=== PATIENT | female | born 1975 | race Caucasian/White ===

== ENCOUNTER 2016-10-17 19:59 | Emergency (ER) | payer BC, OTHER ==
[~2016-10-17] VITALS: Ht 167.6 cm; Wt 100.0 kg
[2016-10-17 20:20] VITALS: BP 131/83; PULSE 92; RESP 18; TEMP 97.7; O2SAT 99
--- NOTE | 2016-10-17 20:25 | PD ---
HPI Chief Complaint: Gamez act Time Seen by Provider: 20:13 Travel History International Travel<30 days: No Contact w/Intl Traveler<30days: No Traveled to known affect area: No History of Present Illness HPI The patient is a 41-year-old female who presents emergency Department as a Gamez act. According to the police affidavit the patient has a history of depression and was advised by the patient's father that the patient is a recovering alcoholic. The patient states she stopped taking her generic Effexor and Wellbutrin on Sunday. She has been drinking over the last several days and took 4 Tylenol PM pills 2 days ago in an attempt to kill herself. The patient does have a previous history of overdose with Tylenol multiple years ago. She does have a history of depression and states "is not worth living anymore ". She does note suicidal ideation without specific plan, however, did recently take 4 Tylenol PM pills. She denies any illicit drug use. She denies any hallucinations or delusions. She denies any physical complaints and is actively asking for water to drink. [facility] Past Medical History Narrative Medical Depression Past Surgical History Narrative Surgical Not contributory Social History Alcohol Use: Yes Tobacco Use: No Allergies-Medications (Allergen,Severity, Reaction): Coded Allergies: No Known Allergies (Unverified , 10/17/16) Review of Systems Except as stated in HPI: all other systems reviewed are Neg General / Constitutional: No: Fever HENT: No: Lightheadedness Cardiovascular: No: Chest Pain or Discomfort Respiratory: No: Shortness of Breath Gastrointestinal: No: Nausea, Vomiting, Abdominal Pain Neurologic: No: Weakness, Dizziness Psychiatric: Positive: Depression, Suicidal Ideations, Substance Abuse ( alcohol use), No: Homicidal Ideation Physical Exam Narrative GENERAL: Awake, alert, 41-year-old female appears her stated age and is in no acute respiratory distress. SKIN: No obvious rash. HEAD: Atraumatic. Normocephalic. EYES: No injection or drainage. ENT: No nasal bleeding or discharge. Mucous membranes pink and moist. NECK: Trachea midline. No JVD. CARDIOVASCULAR: Regular rate and rhythm. No murmur appreciated. RESPIRATORY: No accessory muscle use. Clear to auscultation. Breath sounds equal bilaterally. MUSCULOSKELETAL: No obvious deformities. No clubbing. No cyanosis. No edema. NEUROLOGICAL: Awake and alert. No obvious cranial nerve deficits. Motor grossly within normal limits. Normal speech. Nonfocal. PSYCHIATRIC: Flat affect. Data Data Last Documented VS Vital Signs Date Time Temp Pulse Resp B/P Pulse Ox O2 Delivery O2 Flow Rate FiO2 10/17/16 20:20 97.7 92 18 131/83 99 Orders Complete Blood Count With Diff (10/17/16 20:18) Comprehensive Metabolic Panel (10/17/16 20:18) Urinalysis - C+S If Indicated (10/17/16 20:18) Psych Screen (10/17/16 20:18) Drug Screen, Random Urine (10/17/16 20:18) Alcohol (Ethanol) (10/17/16 20:18) Salicylates (Aspirin) (10/17/16 20:18) Tylenol (Acetaminophen) (10/17/16 20:18) Labs Laboratory Tests Test 10/17/16 20:38 White Blood Count 7.8 TH/MM3 Red Blood Count 4.76 MIL/MM3 Hemoglobin 14.7 GM/DL Hematocrit 44.2 % Mean Corpuscular Volume 93.0 FL Mean Corpuscular Hemoglobin 31.0 PG Mean Corpuscular Hemoglobin 33.3 % Concent Red Cell Distribution Width 13.4 % Platelet Count 314 TH/MM3 Mean Platelet Volume 8.7 FL Neutrophils (%) (Auto) 36.2 % Lymphocytes (%) (Auto) 49.5 % Monocytes (%) (Auto) 9.6 % Eosinophils (%) (Auto) 3.5 % Basophils (%) (Auto) 1.2 % Neutrophils # (Auto) 2.8 TH/MM3 Lymphocytes # (Auto) 3.8 TH/MM3 Monocytes # (Auto) 0.7 TH/MM3 Eosinophils # (Auto) 0.3 TH/MM3 Basophils # (Auto) 0.1 TH/MM3 CBC Comment DIFF FINAL Differential Comment Sodium Level 142 MEQ/L Potassium Level 3.7 MEQ/L Chloride Level 104 MEQ/L Carbon Dioxide Level 24.5 MEQ/L Anion Gap 14 MEQ/L Blood Urea Nitrogen 9 MG/DL Creatinine 0.98 MG/DL Estimat Glomerular Filtration 63 ML/MIN Rate Random Glucose 107 MG/DL Calcium Level 8.6 MG/DL Total Bilirubin 0.3 MG/DL Aspartate Amino Transf 38 U/L (AST/SGOT) Alanine Aminotransferase 43 U/L (ALT/SGPT) Alkaline Phosphatase 71 U/L Total Protein 7.4 GM/DL Albumin 3.7 GM/DL Salicylates Level LESS THAN 1.7 MG/DL Acetaminophen Level LESS THAN 2.0 MCG/ML Ethyl Alcohol Level 242 MG/DL [facility] Medical Decision Making Medical Screen Exam Complete: Yes Emergency Medical Condition: Yes Medical Record Reviewed: Yes Interpretation(s) Laboratory Tests Test 10/17/16 20:38 White Blood Count 7.8 TH/MM3 Red Blood Count 4.76 MIL/MM3 Hemoglobin 14.7 GM/DL Hematocrit 44.2 % Mean Corpuscular Volume 93.0 FL Mean Corpuscular Hemoglobin 31.0 PG Mean Corpuscular Hemoglobin 33.3 % Concent Red Cell Distribution Width 13.4 % Platelet Count 314 TH/MM3 Mean Platelet Volume 8.7 FL Neutrophils (%) (Auto) 36.2 % Lymphocytes (%) (Auto) 49.5 % Monocytes (%) (Auto) 9.6 % Eosinophils (%) (Auto) 3.5 % Basophils (%) (Auto) 1.2 % Neutrophils # (Auto) 2.8 TH/MM3 Lymphocytes # (Auto) 3.8 TH/MM3 Monocytes # (Auto) 0.7 TH/MM3 Eosinophils # (Auto) 0.3 TH/MM3 Basophils # (Auto) 0.1 TH/MM3 CBC Comment DIFF FINAL Differential Comment Sodium Level 142 MEQ/L Potassium Level 3.7 MEQ/L Chloride Level 104 MEQ/L Carbon Dioxide Level 24.5 MEQ/L Anion Gap 14 MEQ/L Blood Urea Nitrogen 9 MG/DL Creatinine 0.98 MG/DL Estimat Glomerular Filtration 63 ML/MIN Rate Random Glucose 107 MG/DL Calcium Level 8.6 MG/DL Total Bilirubin 0.3 MG/DL Aspartate Amino Transf 38 U/L (AST/SGOT) Alanine Aminotransferase 43 U/L (ALT/SGPT) Alkaline Phosphatase 71 U/L Total Protein 7.4 GM/DL Albumin 3.7 GM/DL Salicylates Level LESS THAN 1.7 MG/DL Acetaminophen Level LESS THAN 2.0 MCG/ML Ethyl Alcohol Level 242 MG/DL Differential Diagnosis Differential diagnosis includes substance induced mood disorder, alcohol intoxication, depressive disorder NOS, major depression, mood disorder, intentional overdose. Narrative Course Labs were drawn and sent. Acetaminophen level and salicylate level were sent to lab. Psychiatric evaluation was ordered. Acetaminophen level and salicylate level are unremarkable. A levels elevated at 242. Patient is medically clear to be evaluated by psychiatry. Disposition as per psych. Diagnosis Primary Impression: Substance induced mood disorder Additional Impression: Alcohol intoxication Qualified Code: F10.120 - Alcohol intoxication, uncomplicated Condition: Stable Mehran Garcia MD Oct 17, 2016 20:25
[2016-10-17 20:58] LABS: AUTOMATED NEUTROPHIL # 2.8 TH/MM3 (1.8-7.7); BASOPHIL # 0.1 TH/MM3 (0-0.2); BASOPHIL % 1.2 % (0.0-2.0); EOSINOPHIL # 0.3 TH/MM3 (0-0.4); EOSINOPHIL % 3.5 % (0.0-4.0); HEMATOCRIT 44.2 % (35.0-46.0); HEMO FLAGS DIFF FINAL; LYMPH % 49.5 % (9.0-44.0); LYMPHOCYTE # 3.8 TH/MM3 (1.0-4.8); MEAN CORPUSCULAR HGB CONC 33.3 % (32.0-36.0); MONO % 9.6 % (0.0-8.0); NEUT % 36.2 % (16.0-70.0); PLATELET COUNT 314 TH/MM3 (150-450); RED BLOOD COUNT 4.76 MIL/MM3 (4.00-5.30); RED CELL DISTRIBUTION WIDTH 13.4 % (11.6-17.2); WHITE BLOOD COUNT 7.8 TH/MM3 (4.0-11.0)
[2016-10-17 21:13] LABS: ANION GAP 14 MEQ/L (5-15)
[2016-10-17 21:17] LABS: ACETAMINOPHEN LESS THAN 2.0 MCG/ML (10.0-30.0); ALKALINE PHOSPHATASE 71 U/L (45-117); ALT (GPT) 43 U/L (10-53); AST (GOT) 38 U/L (15-37); BICARBONATE 24.5 MEQ/L (21.0-32.0); BLOOD UREA NITROGEN 9 MG/DL (7-18); CHLORIDE 104 MEQ/L (98-107); GLOMERULAR FILTRATION RATE 63 ML/MIN (>89); POTASSIUM 3.7 MEQ/L (3.5-5.1); SODIUM (NA) 142 MEQ/L (136-145); TOTAL BILIRUBIN ADULT 0.3 MG/DL (0.2-1.0)
[2016-10-17] MEDS ORDERED: BUPR150XL PO (21:54)
[2016-10-17] MEDS ORDERED: WELLTAB39 PO (21:54)
[2016-10-17] MEDS ORDERED: VENL75CA44 PO (21:54)
[2016-10-17] MEDS ORDERED: VENL150C39 PO (21:54)
[2016-10-17] MEDS ORDERED: NORE1TAB73 PO (21:54)
[2016-10-17 22:27] VITALS: BP 155/70; PULSE 99; RESP 16; O2SAT 99
[2016-10-18 01:01] LABS: AMPHETAMINE, URINE NEG (NEG); BARBITURATES, URINE NEG (NEG); COCAINE, URINE NEG (NEG)
[2016-10-18 01:07] LABS: BACTERIA, URINE RARE /hpf; BLOOD, URINE LARGE (NEG); COMMENT (UR) CULT NOT INDICATED; CULTURE IF INDICATED CULT NOT INDICATED; GLUCOSE,URINE NEG (NEG); HYALINE CAST, URINE 2 /lpf (RARE); KETONE, URINE NEG (NEG); MUCUS URINE FEW /lpf (OCC); NITRITE,URINE NEG (NEG); PH, URINE 5.5 (5.0-8.5); SQUAMOUS EPITHELIAL CELL URINE 4 /hpf (0-5); TRANSITIONAL EPI CELLS, URINE <1 /hpf; URINE COLOR YELLOW (YELLW/STRAW)
[2016-10-18 02:17] VITALS: BP 127/74; PULSE 70; RESP 19; O2SAT 99
[2016-10-18 06:11] VITALS: BP 148/89; PULSE 83; RESP 16; O2SAT 100
[2016-10-18 12:14] VITALS: BP 149/89; PULSE 83; RESP 16; O2SAT 100
--- NOTE | 2016-10-18 12:22 | PD ---
History of Present Illness Chief Complaint: Psychiatric Symptoms Travel History International Travel<30 Days: No Contact w/Intl Traveler<30days: No Known affected area: No Legal Status Legal Status: Gamez Act Gamez Act Signed By: Pablo Gamez Act Comment: Signed by [facility] Officer Cristi Abreu #[id number]. History of Present Illness: Patient has history of alcoholism and apparently stopped taking her antidepressant medicine last weekend and commenced drinking alcohol over the last 2 days. She overdosed on a few pills of Tylenol, etc. Currently she is no longer intoxicated and she is calm, pleasant and cooperative. She verbally contracts for safety and has no suicidal or homicidal ideation, plan or intention. Her insight and judgment are adequate and her cognition is completely intact. This physician feels she needs to return to Alcoholics Anonymous and work on her alcoholism problem. She does not currently have a major mental illness, such as depression, while the alcohol is predominant. [facility] Past Medical History Medical History: Denies Significant Hx ?: Not Psychiatric History Psychiatric History Hx Psychiatric Treatment: Per pt, she is being treated by a psychiatrist, in [place]. States that her last face to face was approx "a couple of weeks ago". Per pt, she has been admitted inpatient in [place], [place] and also at the [facility] in [place], [place]. States has been drinking on and off since she was a teenager. States that at times, she has gone a whole month. She states that she can drink a pint of Vodka in a day and be fine the next day. She denies that she has any Hx of withdrawal symptoms with her drinking. Patient states that she not had any of her psychiatric medication since last Sat. States that she only has withdrawal symptoms with that. Per pt, she has Hx of suicide attempt x1 by Tylenol overdose. She states that she was admitted to a critical care floor as a result in [place], [place]. She states that this was approx 8 years ago. History of Inpatient Treatment: Yes Social History Hx Alcohol Use: Yes Hx Tobacco Use: No Hx Substance Use: Yes Substance Use Type: Alcohol Hx of Substance Use Treatment: Yes Allergies-Medications (Allergen,Severity, Reaction): Coded Allergies: No Known Allergies (Unverified , 10/17/16) Reported Meds & Prescriptions Reported Meds & Active Scripts Active Reported Venlafaxine ER 24 HR (Venlafaxine HCl) 150 Mg Cap 150 Mg PO DAILY Venlafaxine ER 24 HR (Venlafaxine HCl) 75 Mg Cap 75 Mg PO DAILY Wellbutrin Xl 24 HR (Bupropion HCl) 300 Mg Tab 300 Mg PO DAILY Wellbutrin Xl 24 HR (Bupropion HCl) 150 Mg Tab 150 Mg PO DAILY Blisovi 24 Fe 08/11 (Norethindrone-Ethinyl Estradiol-Fe) 1-20 Mg-Mcg Tab 1 Tab PO DAILY Review of Systems ROS Limitations: Clinical Condition Except as stated in HPI: all other systems reviewed are Neg Exam Exam Limitations: Clinical Condition Alert: Yes [place]: Person, Place, Date, Situation Mood: Calm Affect: Euthymic Speech: Clear, Logical Eye Contact: Normal Memory Intact: Immediate, Recent, Remote Insight/Judgement Adequate except regarding the use of alcohol. [facility] Medical Decision Making Medical Record Reviewed: Yes Assessment/Plan Patient's Gamez act is being lifted and she no longer meets criteria. They correct is also not to be used for people whose primary issue is alcoholism. She furthermore does not meet criteria for inpatient psychiatric hospitalization. This physician feels she needs to return to Alcoholics Anonymous, obtain a sponsor, go to meetings, etc. Orders Complete Blood Count With Diff (10/17/16 20:18) Comprehensive Metabolic Panel (10/17/16 20:18) Urinalysis - C+S If Indicated (10/17/16 20:18) Psych Screen (10/17/16 20:18) Drug Screen, Random Urine (10/17/16 20:18) Alcohol (Ethanol) (10/17/16 20:18) Salicylates (Aspirin) (10/17/16 20:18) Tylenol (Acetaminophen) (10/17/16 20:18) Diet Regular Basic (10/18/16 Breakfast) Results Vital Signs Date Time Temp Pulse Resp B/P Pulse Ox O2 Delivery O2 Flow Rate FiO2 10/18/16 12:14 83 16 149/89 100 Room Air 10/18/16 06:11 83 16 148/89 100 Room Air 10/18/16 02:17 70 19 127/74 99 Room Air 10/17/16 22:27 99 16 155/70 99 Room Air 10/17/16 20:20 97.7 92 18 131/83 99 Laboratory Tests Test 10/17/16 10/18/16 20:38 00:20 White Blood Count 7.8 Red Blood Count 4.76 Hemoglobin 14.7 Hematocrit 44.2 Mean Corpuscular Volume 93.0 Mean Corpuscular Hemoglobin 31.0 Mean Corpuscular Hemoglobin 33.3 Concent Red Cell Distribution Width 13.4 Platelet Count 314 Mean Platelet Volume 8.7 Neutrophils (%) (Auto) 36.2 Lymphocytes (%) (Auto) 49.5 Monocytes (%) (Auto) 9.6 Eosinophils (%) (Auto) 3.5 Basophils (%) (Auto) 1.2 Neutrophils # (Auto) 2.8 Lymphocytes # (Auto) 3.8 Monocytes # (Auto) 0.7 Eosinophils # (Auto) 0.3 Basophils # (Auto) 0.1 CBC Comment DIFF FINAL Differential Comment Sodium Level 142 Potassium Level 3.7 Chloride Level 104 Carbon Dioxide Level 24.5 Anion Gap 14 Blood Urea Nitrogen 9 Creatinine 0.98 Estimat Glomerular Filtration 63 Rate Random Glucose 107 Calcium Level 8.6 Total Bilirubin 0.3 Aspartate Amino Transf 38 (AST/SGOT) Alanine Aminotransferase 43 (ALT/SGPT) Alkaline Phosphatase 71 Total Protein 7.4 Albumin 3.7 Salicylates Level LESS THAN 1.7 Acetaminophen Level LESS THAN 2.0 Ethyl Alcohol Level 242 Urine Color YELLOW Urine Turbidity HAZY Urine pH 5.5 Urine Specific [place] 1.013 Urine Protein TRACE Urine Glucose (UA) NEG Urine Ketones NEG Urine Occult Blood LARGE Urine Nitrite NEG Urine Bilirubin NEG Urine Urobilinogen LESS THAN 2.0 Urine Leukocyte Esterase TRACE Urine RBC 2 Urine WBC 7 Urine Squamous Epithelial 4 Cells Urine Transitional Epithelial <1 Cells Urine Bacteria RARE Urine Hyaline Casts 2 Urine Mucus FEW Microscopic Urinalysis Comment CULT NOT INDICATED Urine Opiates Screen NEG Urine Barbiturates Screen NEG Urine Amphetamines Screen NEG Urine Benzodiazepines Screen NEG Urine Cocaine Screen NEG Urine Cannabinoids Screen NEG Diagnosis Primary Impression: Adjustment disorder with mixed disturbance of emotions and conduct Condition: Stable Jhon Howard MD Oct 18, 2016 12:22
== END 2016-10-18 13:58 | disposition home or self-care (01) ==
LOC: NEDAMB 19:59 → NEPJ 10-18 13:58
DX: F43.25 Adjustment disorder with mixed disturbance of emotions and conduct (principal); F10.120 Alcohol abuse with intoxication, uncomplicated; Y90.8 Blood alcohol level of 240 mg/100 ml or more
CPT/HCPCS: 80053; 80307; 81001; 85025; 99285